=== PATIENT | male | born 1995 | race Caucasian/White ===

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

== ENCOUNTER 2018-10-12 08:20 | Emergency (ER) | payer BC ==
[2018-10-12 08:26] VITALS: BP 140/74
--- NOTE | 2018-10-12 09:26 | ER Document Report ---
ED General - General Chief Complaint: Toothache Stated Complaint: TOOTH PAIN Time Seen by Provider: 10/12/18 09:25 Primary Care Provider: NATALIA HILLMAN MD [ACTIVE STAFF] - Follow up in 1 week (for oral surgery follow up) TRAVEL OUTSIDE OF THE [place] IN LAST 30 DAYS: No - HPI Notes: 23-year-old male to the emergency department with complaints of left upper toothache that has been getting worse in the past several days but has been ongoing for 1 month. States he saw a dentist who told him that he needed to be seen by an oral surgeon to have this wisdom tooth removed. He states that about 1 month ago he broke the tooth and has had difficulty with it since. States that he does not have dental insurance so he has had difficulty following up. He denies any fevers, chills, vomiting, chest pain, shortness of breath, nausea, diarrhea, drooling, or difficulty opening his mouth. He states that when he initially broke the tooth a dentist that he saw had placed him on penicillin but he does not have any currently. He states that Tylenol Motrin has not been helping with the pain. - Related Data Allergies/Adverse Reactions: No Known Allergies Allergy (Verified 10/12/18 08:20) Past Medical History - General Information source: Patient - Social History Smoking Status: Current Every Day Smoker Chew tobacco use (# tins/day): No Frequency of alcohol use: Occasional Drug Abuse: Marijuana Family History: Reviewed & Not Pertinent Patient has suicidal ideation: No Patient has homicidal ideation: No Renal/ Medical History: Denies: Hx Peritoneal Dialysis Review of Systems - Review of Systems Constitutional: denies: Chills, Fever EENT: See HPI, Ear pain - Radiating pain into the left ear from tooth., Dental problem Cardiovascular: No symptoms reported. denies: Chest pain, Palpitations, Dyspnea, Syncope, Dizziness, Lightheaded Respiratory: denies: Cough, Short of breath Gastrointestinal: denies: Abdominal pain, Diarrhea, Nausea, Vomiting Genitourinary: No symptoms reported Male Genitourinary: No symptoms reported Musculoskeletal: No symptoms reported Skin: No symptoms reported Hematologic/Lymphatic: No symptoms reported Neurological/Psychological: Headaches - Left-sided headache radiating from tooth -: Yes All other systems reviewed and negative Physical Exam - Vital signs Vitals: Temp Pulse Resp BP Pulse Ox 97.5 F 96 14 140/74 H 99 10/12/18 08:24 10/12/18 08:24 10/12/18 08:24 10/12/18 08:24 10/12/18 08:24 Interpretation: Hypertensive - General General appearance: Appears well, Alert In distress: None - HEENT Head: Normocephalic, Atraumatic Eyes: Normal Pupils: PERRL Ears: Normal External canal: Normal Tympanic membrane: Normal Sinus: Normal Nasal: Normal Mouth/Lips: Caries - The most posterior aspect of tooth #17 is broken with noted carry. There is mild gum erythema but no claudine abscess appreciated. There is no ludwigs angina. There is no drooling. Airway is grossly patent. Pharynx: Normal. No: Erythema, Peritonsillar abscess, Retropharyngeal abscess, Tonsillar hypertrophy, Uvular edema, Potential airway comprom. Neck: Normal - Respiratory Respiratory status: No respiratory distress Chest status: Nontender Breath sounds: Normal Chest palpation: Normal - Cardiovascular Rhythm: Regular Heart sounds: Normal auscultation Murmur: No - Neurological Neuro grossly intact: Yes Cognition: Normal Orientation: AAOx4 Dafter Coma Scale Eye Opening: Spontaneous Willie Coma Scale Verbal: Oriented Willie Coma Scale Motor: Obeys Commands Dafter Coma Scale Total: 15 Speech: Normal Cranial nerves: Normal. No: Facial palsy, Forehead sparing, Gaze palsy, Sensory deficit, Tongue deviation Cerebellar coordination: Normal Motor strength normal: LUE, RUE, LLE, RLE Additional motor exam normals: Equal manager of development. No: Pronator drift Sensory: Normal - Psychological Associated symptoms: Normal affect, Normal mood - Skin Skin Temperature: Warm Skin Moisture: Dry Skin Color: Normal Course - Re-evaluation Re-evalutation: 10/12/18 Impression: Left upper tooth dental caries and toothache. Will start on amoxicillin and send home a small amount of pain medicines. Will give information for follow-up with oral surgeon. Patient agrees with the plan. Encouraged to return if any difficulty swallowing, shortness of breath, fevers, worsening facial swelling. Or any other complaints. Patient agrees with the plan. - Vital Signs Vital signs: Temp Pulse Resp BP Pulse Ox 97.5 F 96 14 140/74 H 99 10/12/18 08:24 10/12/18 08:24 10/12/18 08:24 10/12/18 08:24 10/12/18 08:24 Discharge - Discharge Clinical Impression: Toothache, Dental caries Condition: Stable Disposition: HOME, SELF-CARE Instructions: Toothache ([facility]) Additional Instructions: TAKE ALL ANTIBIOTICS PRESCRIBED. USE MOUTHWASH. RETURN IF WORSENING SYMPTOMS. PUSH FLUIDS. Prescriptions: Amoxicillin Trihydrate [Amoxil 500 mg Capsule] 500 mg PO TID #30 capsule Chlorhexidine Gluconate [Peridex] 15 ml MM BID #420 ml Tramadol HCl [Ultram 50 mg Tablet] 50 mg PO TID #9 tab Referrals: NATALIA HILLMAN MD [ACTIVE STAFF] - Follow up in 1 week (for oral surgery follow up)
== END 2018-10-12 09:46 | disposition home or self-care (01) ==
LOC: ER 08:20
DX: K02.9 Dental caries, unspecified (principal); K08.89 Other specified disorders of teeth and supporting structures; H92.02 Otalgia, left ear; R51 Headache; F12.10 Cannabis abuse, uncomplicated; F17.200 Nicotine dependence, unspecified, uncomplicated
CPT/HCPCS: 99282